=== PATIENT | female | born 2000 | race Caucasian/White ===

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

== ENCOUNTER 2018-09-20 20:44 | Emergency (ER) | payer BC, MEDICAID ==
[2018-09-20] MEDS ORDERED: IBUPROFEN 600 MG TABLET PO ONE (21:05)
--- NOTE | 2018-09-20 21:12 | Emergency Department Record ---
History of Present Illness - General Chief complaint: Flank Pain Stated complaint: LT FLANK PAIN Time Seen by Provider: 09/20/18 20:45 Source: Patient Mode of Arrival: Ambulatory Limitations: No limitations - History of Present Illness Initial comments: 18 yo female presents to ED for evaluation of left sided flank pain symptoms that began approximately 5 hour ago. Patient denies injury, denies hematuria or dysuria symptoms. Patient denies history of kidney stones. Patient denies fevers, chills, or recent illness, denies cough symptoms. Patient denies taking anything for her symptoms prior to arrival, and denies health problems at her baseline. LMP was 2 weeks ago. Complaint: Other (Flank pain) Onset/Timin -: Hour(s) Radiation: L flank Severity scale (1-10): 8 Quality: Sharp Consistency: Constant Improves with: Other Worsens with: Other Patient : No Associated Symptoms: Nausea/vomiting - Related Data Sexually active: Yes Previous Rx's Medication Instructions Recorded Ibuprofen [Motrin 600Mg] 600 mg PO Q6H #30 tablet 09/20/18 Tamsulosin HCl [Flomax] 0.4 mg PO DAILY #15 cap.er.24h 09/20/18 Allergies Allergy/AdvReac Type Severity Reaction Status Date / Time No Known Drug Allergies Allergy Verified 09/20/18 20:52 Travel Screening - Travel/Exposure Within Last 30 Days Have you traveled within the last 30 days?: No - Travel/Exposure Within Last Year Have you traveled outside the [place] in the last year?: No - Additonal Travel Details Have you been exposed to anyone with a communicable illness?: No - Travel Symptoms Symptom Screening: None Review of Systems Constitutional: Denies: Chills, Fever, Malaise, Night sweats Eyes: Denies: Eye discharge, Eye pain ENT: Denies: Congestion, Ear pain, Epistaxis Respiratory: Denies: Cough, Dyspnea Cardiovascular: Denies: Chest pain, Dyspnea on exertion Endocrine: Denies: Fatigue, Heat or cold intolerance Gastrointestinal: Reports: Nausea, Vomiting. Denies: Abdominal pain Genitourinary: Denies: Incontinence, Retention Musculoskeletal: Reports: Back pain. Denies: Arthralgia Skin: Denies: Bruising, Change in color Neurological: Denies: Abnormal gait, Confusion, Headache, Seizure Psychiatric: Denies: Anxiety Hematological/Lymphatic: Denies: Anemia, Blood Clots Past Medical History - SOCIAL HISTORY Smoking Status: Current every day smoker Alcohol Use: Occasional Alcohol Use Comment: thursday Drug Use: None - RESPIRATORY Hx Respiratory Disorders: Yes Hx Asthma: Yes - CARDIOVASCULAR Hx Cardio Disorders: Yes Comment:: heart murmur - NEURO Hx Neuro Disorders: No - GI Hx GI Disorders: No - Hx Genitourinary Disorders: No - ENDOCRINE Hx Endocrine Disorders: No - MUSCULOSKELETAL Hx Musculoskeletal Disorders: No - PSYCH Hx Psych Problems: No - HEMATOLOGY/ONCOLOGY Hx Hematology/Oncology Disorders: No Family Medical History Any Significant Family History?: No Family Hx Comment (NOT TO BE USED IN PLACE OF ITEMS BELOW): denies Physical Exam - General General Appearance: Alert, Oriented x3, Cooperative, Mild distress, Other (Sits up, lays supine easily without pain symptoms) Limitations: No limitations - Head Head exam: Atraumatic, Normocephalic, Normal inspection Head exam detail: negative: Abrasion, Contusion, Marquez's sign, General tenderness, Hematoma, Laceration - Eye Eye exam: Normal appearance. negative: Conjunctival injection, Periorbital swelling, Periorbital tenderness, Scleral icterus - ENT Ear exam: negative: Auricular hematoma, Auricular trauma Nasal Exam: negative: Active bleeding, Discharge, Dried blood, Foreign body Mouth exam: negative: Drooling, Laceration, Muffled voice, Tongue elevation - Neck Neck exam: Normal inspection. negative: Meningismus, Tenderness - Respiratory Respiratory exam: Normal lung sounds bilaterally. negative: Rales, Respiratory distress, Rhonchi, Stridor - Cardiovascular Cardiovascular Exam: Regular rate, Normal rhythm, Normal heart sounds - GI/Abdominal GI/Abdominal exam: Soft. negative: Rebound, Rigid, Tenderness - Rectal Rectal exam: Deferred - exam: Deferred - Extremities Extremities exam: Normal inspection. negative: Pedal edema, Tenderness - Back Back exam: Reports: CVA tenderness (L). Denies: CVA tenderness (R), Paraspinal tenderness - Neurological Neurological exam: Alert, Normal gait, Oriented X3 - Psychiatric Psychiatric exam: Normal affect, Normal mood - Skin Skin exam: Normal color. negative: Abrasion Type of lesion: negative: abrasion Course Vital Signs 09/20/18 20:49 Temperature 98.6 F Pulse Rate [ 91 H Left] Respiratory 16 Rate Blood Pressure 110/70 [Left Arm] Pulse Ox 99 - Reevaluation(s) Reevaluation #1: 09/20/18 21:11 Patient was seen and examined, overall well appearing. Benign abdominal examination that is non-tender. Patient denies history of kidney stone. Will administer Motrin 600 mg, obtain UA, and reassess. Reevaluation #2: 09/20/18 22:02 Patient ambulated to the bathroom comfortably for UA sample, reports that her pain symptoms are improved to 1-2/10 from 8/10 following Motrin. Large blood present in the UA, will evaluate the patient for possible ureteral lithiasis with bloodwork/CT imaging. Patient is in agreement with the plan of care as discussed. Reevaluation #3: 09/20/18 22:56 CT Abdomen and Pelvis: 3 mm calculus proximal left ureter with mild hydronephrosis present. Patient was updated on all results, resting comfortably at this time. Will refer the patient to Dr. Rodriguez for follow-u-p, initiate treatment with Motrin and Flomax as directed. Patient was counseled to increase clear fluids as well, decrease carbonated beverages. Medical Decision Making - Lab Data Result diagrams: 09/20/18 21:15 09/20/18 21:15 Disposition Disposition: Discharge Clinical Impression: Flank pain, Ureteral calculus of left kidney transplant Disposition: Home, Self-Care Condition: (2) Stable Instructions: Flank Pain (ED) Additional Instructions: Return to ED if your symptoms worsen or if you have any concerns. Ibuprofen 600 mg and flomax as directed. Follow-up with your family doctor in 3-5 days as directed. Prescriptions: Tamsulosin HCl [Flomax] 0.4 mg PO DAILY #15 cap.er.24h Ibuprofen [Motrin 600Mg] 600 mg PO Q6H #30 tablet Referrals: CAROLINA RODRIGUEZ M.D. [MEDICAL DOCTOR] - [facility] [Provider Group] Forms: Patient Portal Access Time of Disposition: 22:59 Quality - Quality Measures Quality Measures: N/A - Blood Pressure Screening Does Patient Have Any of the Following: No Blood Pressure Classification: Normal BP Reading Systolic Measurement: 106 Diastolic Measurement: 55 Screening for High Blood Pressure: < Normal BP, F/U Not Required > [G8783]
[2018-09-20 21:55] LABS: URINE APPEARANCE SL CLOUDY; URINE BILIRUBIN NEGATIVE (NEGATIVE); URINE BLOOD LARGE (NEGATIVE); URINE COLOR YELLOW; URINE GLUCOSE (UA) NEGATIVE (NEGATIVE); URINE KETONE 15 mg/dL (NEGATIVE); URINE LEUKOCYTE ESTERASE NEGATIVE (NEGATIVE); URINE NITRITE NEGATIVE (NEGATIVE)
[2018-09-20 22:01] LABS: URINE BACTERIA FEW; URINE MUCUS MODERATE; URINE WBC 0 - 2 (0-2/hpf)
[2018-09-20 22:02] LABS: HCG,QUALITATIVE URINE NEGATIVE (NEGATIVE)
[2018-09-20 22:33] LABS: BLOOD UREA NITROGEN 10 mg/dL (6-20); CREATININE 0.5 mg/dL (0.5-0.9); EST GLOMERULAR FILTRATION RATE > 60 mL/min
[2018-09-20 22:34] LABS: TOTAL PROTEIN 6.7 g/dL (6.6-8.7)
[2018-09-20 22:36] LABS: GLUCOSE,RANDOM 104 mg/dL (74-109)
[2018-09-20 22:39] LABS: ALB/GLOB RATIO 1.8 (1.1-1.8); ALBUMIN 4.3 g/dL (4.0-5.0); ALKALINE PHOSPHATASE 28 U/L (35-104); ALT/SGPT 11 U/L (<33); AST/SGOT 15 U/L (10.0-35.0)
[2018-09-20 22:41] LABS: BASO % 0.1 % (0-6); EOS % 0.1 % (0-6); HEMATOCRIT 38.3 % (35.0-47.0); HEMOGLOBIN 12.7 gm/dl (11.6-16.0); LYMPH % 8.9 % (16-45); MEAN CORPUSCULAR HEMOGLOBIN 27.9 pg (27-33); MEAN CORPUSCULAR HGB CONC 33.2 g/dl (32-36); MEAN PLATELET VOLUME 10.1 fl (7.4-10.4); MONO % 3.7 % (0-9); PLATELET COUNT 308 K/uL (130-400); RED BLOOD COUNT 4.56 M/uL (3.80-5.40); RED CELL DISTRIBUTION WIDTH 12.3 % (11.5-14.5)
[2018-09-20 22:54] LABS: ABSOLUTE NEUTROPHIL COUNT 11.32; PLATELET ESTIMATE NORMAL (NORMAL)
--- NOTE | 2018-09-22 12:56 | CT SCAN REPORT ---
EXAM: CT OF THE ABDOMEN AND PELVIS HISTORY: LEFT FLANK PAIN, HEMATURIA. TECHNIQUE: CT of the abdomen and pelvis was performed without intravenous contrast. Comparison: None. FINDINGS: The lung bases are unremarkable. There is a 3 x 3 mm calculus in the proximal left ureter at the left ureteropelvic junction. This causes mild left hydronephrosis. The ureter distal to this is normal caliber. There are at least five or six nonobstructing left renal calculi also present. No right renal or ureteral calculi. The liver and spleen are unremarkable. No pancreatic mass or inflammatory change. The bile ducts are not dilated and there are no calcified gallstones. No adrenal lesion. No aortic aneurysm. No periaortic mass or adenopathy. There are no dilated bowel loops. The appendix is unremarkable. There is a small right ovarian cyst 2.3 cm in size. There is a small amount of free fluid in the pelvis. There is no pelvic mass, abscess, or adenopathy. There are a few pelvic calcifications most likely representing phleboliths. IMPRESSION: 1. THERE IS A 3 X 3 MM CALCULUS IN THE PROXIMAL LEFT URETER NEAR THE LEFT URETEROPELVIC JUNCTION. 2. THERE ARE SEVERAL SMALL NONOBSTRUCTING INTRARENAL CALCULI ON THE LEFT. 3., CT OF THE ABDOMEN AND PELVIS WAS OTHERWISE UNREMARKABLE. JOB NUMBER: [id number] MTDD
== END 2018-09-20 23:22 | disposition home or self-care (01) ==
LOC: ER 20:44
DX: N13.2 Hydronephrosis with renal and ureteral calculous obstruction (principal); F17.210 Nicotine dependence, cigarettes, uncomplicated; Z94.0 Kidney transplant status
CPT/HCPCS: 74176; 80053; 81001; 81025; 85027; 99283; 99284